=== PATIENT | male | born 1960 | race African-American/Black ===

== ENCOUNTER 2019-11-27 21:00 | Emergency (ER) | payer SELFPAY ==
[~2019-11-27] VITALS: Ht 180.3 cm; Wt 71.0 kg
[2019-11-27] MEDS ORDERED: HYDROCODONE/ACETAMINOPHEN 5/325MG TABLET PO ONE (22:30)
[2019-11-27] MEDS ORDERED: MORPHINE SULFATE 10 MG/ML CPJ IM ONE (23:00)
[2019-11-28 00:12] LABS: BASOPHILS % 0.1 % (0.0-2.0); EOSINOPHILS % 0.1 % (0.0-5.0); HEMATOCRIT. 35.5 % (42.0-52.0); HEMOGLOBIN. 12.1 g/dL (14.0-18.0); LYMPHOCYTES % 7.2 % (20.0-50.0); MEAN CORPUSCULAR HEMOGLOBIN 34.1 pg (28.0-32.0); MEAN CORPUSCULAR VOLUME 100.2 fL (80.0-94.0); MEAN PLATELET VOLUME 8.8 fl (7.4-10.4); MONOCYTES % 4.3 % (2.0-8.0); NEUTROPHILS % 88.3 % (40.0-76.0); PLATELET 183 x1000/uL (130-400); RED BLOOD CELL COUNT 3.54 mill/uL (4.7-6.1); RED CELL DISTRIBUTION WIDTH 14.2 % (11.6-14.6)
[2019-11-28 00:19] LABS: CHLORIDE 107 mEq/L (98-107)
[2019-11-28 00:21] LABS: PROTHROMBIN TIME 10.9 sec (9.6-11.0)
[2019-11-28] MEDS ORDERED: POTASSIUM CHLORIDE 20MEQ TABLET SR PO ONE ×2 (01:00→02:15)
[2019-11-28] MEDS ORDERED: ONDANSETRON 4MG ODT PO ONE (06:45)
[2019-11-28] MEDS ORDERED: MORPHINE SULFATE 4 MG/ML CPJ (NOT FOR IM USE) IV ONE ×2 (06:45→18:00)
[2019-11-28] MEDS ORDERED: MORPHINE SULFATE 4 MG/ML CPJ (NOT FOR IM USE) IV STA (08:42)
[2019-11-28 18:55] VITALS: BP 170/109
== END 2019-11-28 19:17 | disposition short-term general hospital (02) ==
LOC: ER 21:00
DX: S82.491A Other fracture of shaft of right fibula, initial encounter for closed fracture (principal); W18.39XA Other fall on same level, initial encounter; Y93.89 Activity, other specified; Y92.89 Other specified places as the place of occurrence of the external cause; Y99.8 Other external cause status
CPT/HCPCS: 29505; 36415; 73560; 80053; 85025; 85610; 86850; 86900; 86901; 93005; 96372; 96374; 96376; 99285; J2270; L1830; Q0162

== ENCOUNTER 2020-12-29 19:00 | Inpatient (IN) | payer MEDICARE, MEDICAID ==
[~2020-12-29] VITALS: Ht 175.3 cm; Wt 61.2 kg
[2020-12-29] MEDS ORDERED: LORAZEPAM 2MG/ML CPJ IV ONE (19:45)
[2020-12-29] MEDS ORDERED: LEVETIRACETAM 500MG PREMIX 100 ML IV ONE (19:45)
[2020-12-29 20:38] LABS: HEMATOCRIT. 43.2 % (42.0-52.0); HEMOGLOBIN. 14.5 g/dL (14.0-18.0); MEAN CORPUSCULAR HEMOGLOBIN 35.6 pg (28.0-32.0); MEAN CORPUSCULAR VOLUME 105.9 fL (80.0-94.0); MEAN PLATELET VOLUME 10.3 fl (7.4-10.4); PLATELET 72 x1000/uL (130-400); RED BLOOD CELL COUNT 4.08 mill/uL (4.7-6.1); RED CELL DISTRIBUTION WIDTH 15.7 % (11.6-14.6)
[2020-12-29 20:42] LABS: CHLORIDE 97 mEq/L (98-107)
[2020-12-29] MEDS ORDERED: LABETALOL 5MG/ML SYR 20 MG/4 ML SYRINGE IV ONE (21:15)
[2020-12-29 21:16] LABS: PLATELET ESTIMATE DECREASED
[2020-12-29] MEDS ORDERED: MANNITOL 12.5G (25%) VIAL 50ML IV ONE (21:45)
[2020-12-29] MEDS ORDERED: LABETALOL HCL 100 MG in DEXT 5% WATER 80 ML IV PRN (21:45)
[2020-12-29] MEDS ORDERED: NICARDIPINE 100 MG in SODIUM CHLORIDE 0.9% 60 ML IV PRN (21:45)
[2020-12-29] MEDS ORDERED: MANNITOL 20% 200 ML IV NR (22:00)
[2020-12-29] MEDS: DEXT 5%/LACTATED RINGERS 1,000 ML IV SCH (22:10)
[2020-12-29] MEDS ORDERED: DEXAMETHASONE 4MG/ML 1ML VIAL IV ONE (22:30)
[2020-12-29] MEDS: NICARDIPINE 100 MG in SODIUM CHLORIDE 0.9% 60 ML IV PRN (22:58)
[2020-12-29 23:30] VITALS: BP 160/75
[2020-12-30] VITALS (71 sets, daily range): BP systolic 38–156; BP diastolic 15–101
[2020-12-30] MEDS ORDERED: MANNITOL 20% (20GM/100ML) BAG 500ML PREMIX IV STA (00:16)
[2020-12-30] MEDS ORDERED: MANNITOL 20% 125 ML IV NR (00:30)
[2020-12-30] MEDS: MORPHINE SULFATE 2 MG/ML CPJ (NOT FOR IM USE) IV PRN ×2 (00:56→21:52)
[2020-12-30] MEDS: DEXAMETHASONE 4MG/ML 1ML VIAL IV SCH ×5 (01:08→23:18)
[2020-12-30 06:02] LABS: CHLORIDE 97 mEq/L (98-107)
[2020-12-30] MEDS: NICARDIPINE 100 MG in SODIUM CHLORIDE 0.9% 60 ML IV PRN (06:19)
[2020-12-30] MEDS ORDERED: LOSA50TA41 PO (06:31)
[2020-12-30] MEDS ORDERED: POTASSIUM CHLORIDE INJ 50 MEQ in DEXT 5% WATER 250 ML IV ONE (07:00)
[2020-12-30 08:45] LABS: HEMATOCRIT. 41.5 % (42.0-52.0); HEMOGLOBIN. 14.1 g/dL (14.0-18.0); MEAN CORPUSCULAR HEMOGLOBIN 34.9 pg (28.0-32.0); MEAN CORPUSCULAR VOLUME 102.9 fL (80.0-94.0); MEAN PLATELET VOLUME 9.3 fl (7.4-10.4); PLATELET 55 x1000/uL (130-400); RED BLOOD CELL COUNT 4.03 mill/uL (4.7-6.1); RED CELL DISTRIBUTION WIDTH 15.3 % (11.6-14.6)
[2020-12-30] MEDS ORDERED: LEVETIRACETAM 500MG PREMIX 100 ML IV SCH (09:00)
[2020-12-30 09:26] LABS: NUCLEATED RED BLOOD CELLS 1 /100 WBC
[2020-12-30 09:27] LABS: PLATELET ESTIMATE DECREASED
[2020-12-30] MEDS: PANTOPRAZOLE SODIUM 40 MG/VIAL IV SCH (10:23)
[2020-12-30] MEDS: LEVETIRACETAM 500MG PREMIX 100 ML IV SCH ×2 (10:23→21:51)
[2020-12-30] MEDS ORDERED: AMLO10TA80 PO (14:37)
[2020-12-30] MEDS ORDERED: MAGNESIUM 4 G PREMIX 100 ML IV SCH (16:00)
[2020-12-30] MEDS ORDERED: POTASSIUM CHLORIDE INJ 40 MEQ in DEXT 5% WATER 250 ML IV SCH (16:00)
[2020-12-30] MEDS: DEXT 5%/LACTATED RINGERS 1,000 ML IV SCH (18:42)
[2020-12-31] VITALS (85 sets, daily range): BP systolic 76–189; BP diastolic 23–167
[2020-12-31] MEDS: MORPHINE SULFATE 2 MG/ML CPJ (NOT FOR IM USE) IV PRN ×6 (00:50→23:00)
[2020-12-31 04:54] LABS: HEMATOCRIT. 34.5 % (42.0-52.0); HEMOGLOBIN. 12.1 g/dL (14.0-18.0); MEAN CORPUSCULAR HEMOGLOBIN 35.9 pg (28.0-32.0); MEAN CORPUSCULAR VOLUME 102.2 fL (80.0-94.0); RED BLOOD CELL COUNT 3.38 mill/uL (4.7-6.1); RED CELL DISTRIBUTION WIDTH 15.4 % (11.6-14.6)
[2020-12-31 05:01] LABS: CHLORIDE 105 mEq/L (98-107)
[2020-12-31] MEDS: DEXAMETHASONE 4MG/ML 1ML VIAL IV SCH ×4 (05:12→23:44)
[2020-12-31] MEDS: DEXT 5%/LACTATED RINGERS 1,000 ML IV SCH (08:15)
[2020-12-31] MEDS: PANTOPRAZOLE SODIUM 40 MG/VIAL IV SCH (08:16)
[2020-12-31] MEDS: LEVETIRACETAM 500MG PREMIX 100 ML IV SCH ×2 (08:16→20:39)
[2020-12-31] MEDS ORDERED: CEFTRIAXONE 1 G PREMIX 50 ML IV SCH (10:00)
[2020-12-31] MEDS ORDERED: NALOXONE HCL 0.4MG/ML VIAL IV PRN (10:15)
[2020-12-31] MEDS: CEFTRIAXONE 1,000 MG in DEXTROSE 5% WATER 50 ML IV SCH (12:29)
[2020-12-31] MEDS ORDERED: PIPERACILLIN/TAZOBACTAM 3.375 G in DEXTROSE 5% WATER 50 ML IV SCH (14:00)
[2020-12-31 17:05] LABS: CLARITY URINE CLEAR (CLEAR); COLOR URINE DARK YELLOW (YELLOW); KETONES URINE TRACE (NEGATIVE); LEUKOCYTE ESTERASE URINE TRACE (NEGATIVE); NITRITE URINE NEGATIVE (NEGATIVE); OCCULT BLOOD URINE TRACE (NEGATIVE); PROTEIN URINE 3+ (NEGATIVE); SPECIFIC GRAVITY URINE 1.026 (1.005-1.030)
[2020-12-31 19:05] LABS: *AMPHETAMINES SCREEN URINE NEGATIVE (NEGATIVE)
[2020-12-31 19:06] LABS: *BARBITURATES SCREEN URINE NEGATIVE (NEGATIVE); *BENZODIAZEPINES SCREEN URINE NEGATIVE (NEGATIVE); *COCAINE SCREEN URINE NEGATIVE (NEGATIVE); METHADONE URINE SCREEN NEGATIVE (NEGATIVE); OPIATES URINE SCREEN PRESUMTIVE POSITIVE (NEGATIVE); PHENCYCLIDINE URINE SCREEN NEGATIVE (NEGATIVE)
[2020-12-31 19:07] LABS: CANNABINOID URINE SCREEN NEGATIVE (NEGATIVE)
[2020-12-31] MEDS: NICOTINE 14MG PATCH TD SCH (20:39)
[2021-01-01] VITALS (92 sets, daily range): BP systolic 43–206; BP diastolic 21–146
[2021-01-01] MEDS: HYDRALAZINE 20MG/ML VIAL IV PRN ×4 (00:38→23:28)
[2021-01-01] MEDS: MORPHINE SULFATE 2 MG/ML CPJ (NOT FOR IM USE) IV PRN ×6 (02:11→23:29)
[2021-01-01] MEDS: DEXT 5%/LACTATED RINGERS 1,000 ML IV SCH ×3 (02:14→18:15)
[2021-01-01 05:26] LABS: HEMATOCRIT. 37.3 % (42.0-52.0); HEMOGLOBIN. 12.9 g/dL (14.0-18.0); MEAN CORPUSCULAR HEMOGLOBIN 35.4 pg (28.0-32.0); MEAN CORPUSCULAR VOLUME 102.3 fL (80.0-94.0); RED BLOOD CELL COUNT 3.64 mill/uL (4.7-6.1); RED CELL DISTRIBUTION WIDTH 15.5 % (11.6-14.6)
[2021-01-01 05:34] LABS: CHLORIDE 103 mEq/L (98-107)
[2021-01-01] MEDS: DEXAMETHASONE 4MG/ML 1ML VIAL IV SCH ×3 (05:44→18:15)
[2021-01-01] MEDS: PANTOPRAZOLE SODIUM 40 MG/VIAL IV SCH (08:10)
[2021-01-01] MEDS: LEVETIRACETAM 500MG PREMIX 100 ML IV SCH ×2 (08:10→21:57)
[2021-01-01] MEDS: NICOTINE 14MG PATCH TD SCH (08:10)
[2021-01-01] MEDS ORDERED: LORAZEPAM 2MG/ML CPJ IV NR (10:30)
[2021-01-01] MEDS ORDERED: POTASSIUM CHLORIDE 20MEQ/PACKET PO NR (10:30)
[2021-01-01] MEDS ORDERED: MORPHINE SULFATE 4 MG/ML CPJ (NOT FOR IM USE) IV NR (10:45)
[2021-01-01] MEDS: CEFTRIAXONE 1,000 MG in DEXTROSE 5% WATER 50 ML IV SCH (11:21)
[2021-01-01 11:35] LABS: BG BASE EXCESS 0.8 mmol/L (-2.0-2.0); BG CARBOXYHEMOGLOBIN 0.3 % (0.5-1.5); BG FRACTION INSPIRED OXYGEN 21; BG HCO3 ACT 22.7 mmol/L (22.0-26.0); BG METHEMOGLOBIN 0.4 % (0.0-1.5); BG OXYHEMOGLOBIN 96.3 % (94.0-97.0); BG PCO2 29.2 mmHg (35.0-45.0); BG PH 7.509 (7.350-7.450); BG PO2 90.7 mmHg (75.0-100.0); BG SAMPLE SITE RIGHT RADIAL; BG TOTAL HEMOGLOBIN 14.6 g/dL (12.0-18.0); BG VENT MODE ROOM AIR
[2021-01-01] MEDS: AMLODIPINE 5MG TABLET PO SCH (14:00)
[2021-01-01] MEDS ORDERED: IPRATROPIUM/ALBUTEROL 0.5-3(2.5)MG/3ML NEB HHN PRN (14:00)
[2021-01-01] MEDS: FOLIC ACID 1MG TABLET PO SCH (14:00)
[2021-01-01] MEDS ORDERED: ACETAMINOPHEN 650MG SUPP PR PRN (14:00)
[2021-01-01] MEDS: THIAMINE HCL 100MG TABLET PO SCH (14:00)
[2021-01-01] MEDS ORDERED: BISACODYL 10MG SUPP PR PRN (14:00)
[2021-01-01] MEDS: MULTIVITAMINS,THER W-MINERALS TABLET PO SCH (14:00)
[2021-01-01] MEDS ORDERED: ACETAMINOPHEN 325MG TABLET PO PRN (14:00)
[2021-01-01 15:04] LABS: T4 FREE 0.68 ng/dL (0.76-1.46)
[2021-01-01] MEDS: NICARDIPINE 100 MG in SODIUM CHLORIDE 0.9% 60 ML IV PRN (15:35)
[2021-01-02] VITALS (44 sets, daily range): BP systolic 98–161; BP diastolic 43–127
[2021-01-02] MEDS: HYDRALAZINE 20MG/ML VIAL IV PRN (05:22)
[2021-01-02 06:15] LABS: CHLORIDE 105 mEq/L (98-107)
[2021-01-02 06:16] LABS: HEMATOCRIT. 37.2 % (42.0-52.0); HEMOGLOBIN. 13.3 g/dL (14.0-18.0); MEAN CORPUSCULAR HEMOGLOBIN 36.2 pg (28.0-32.0); MEAN CORPUSCULAR VOLUME 101.8 fL (80.0-94.0); RED BLOOD CELL COUNT 3.66 mill/uL (4.7-6.1); RED CELL DISTRIBUTION WIDTH 15.1 % (11.6-14.6)
[2021-01-02] MEDS: PANTOPRAZOLE SODIUM 40 MG/VIAL IV SCH (08:28)
[2021-01-02] MEDS: THIAMINE HCL 100MG TABLET PO SCH (08:28)
[2021-01-02] MEDS: MULTIVITAMINS,THER W-MINERALS TABLET PO SCH (08:28)
[2021-01-02] MEDS: NICOTINE 14MG PATCH TD SCH (08:30)
[2021-01-02] MEDS: FOLIC ACID 1MG TABLET PO SCH (08:30)
[2021-01-02] MEDS: AMLODIPINE 5MG TABLET PO SCH (08:30)
[2021-01-02] MEDS: LEVETIRACETAM 500MG PREMIX 100 ML IV SCH ×2 (08:40→22:00)
[2021-01-02 08:44] LABS: PHOSPHORUS 0.7 mg/dL (2.5-4.9)
[2021-01-02] MEDS ORDERED: POTASSIUM CHLORIDE INJ 50 MEQ in DEXT 5% WATER 250 ML IV NR (10:00)
[2021-01-02] MEDS: CEFTRIAXONE 1,000 MG in DEXTROSE 5% WATER 50 ML IV SCH (11:20)
[2021-01-02] MEDS ORDERED: SODIUM PHOS,M-BASIC-D-BASIC 15 MM in DEXT 5% WATER 245 ML IV NR (14:00)
[2021-01-02] MEDS: LOSARTAN POTASSIUM 25 MG TABLET PO SCH (14:19)
[2021-01-02] MEDS: DEXT 5%/LACTATED RINGERS 1,000 ML IV SCH (15:02)
[2021-01-02] MEDS ORDERED: POTASSIUM CHLORIDE 20MEQ TABLET SR PO NR (22:00)
[2021-01-02] MEDS ORDERED: MAGNESIUM 2 G PREMIX 50 ML IV NR (23:30)
[2021-01-03] VITALS: BP 123/83
[2021-01-03] MEDS: HYDRALAZINE 20MG/ML VIAL IV PRN (01:48)
[2021-01-03] MEDS ORDERED: HYDRALAZINE 10 MG in SODIUM CHLORIDE 0.9% 49.5 ML IV PRN (03:30)
[2021-01-03 04:00] VITALS: BP 125/75
[2021-01-03 09:23] LABS: CHLORIDE 108 mEq/L (98-107)
[2021-01-03 09:28] LABS: PHOSPHORUS 3.3 mg/dL (2.5-4.9)
[2021-01-03] MEDS: NICOTINE 14MG PATCH TD SCH (09:48)
[2021-01-03] MEDS: PANTOPRAZOLE SODIUM 40 MG/VIAL IV SCH (09:48)
[2021-01-03] MEDS: MULTIVITAMINS,THER W-MINERALS TABLET PO SCH (09:49)
[2021-01-03] MEDS: LOSARTAN POTASSIUM 25 MG TABLET PO SCH (09:49)
[2021-01-03] MEDS: THIAMINE HCL 100MG TABLET PO SCH (09:49)
[2021-01-03] MEDS: FOLIC ACID 1MG TABLET PO SCH (09:50)
[2021-01-03] MEDS: AMLODIPINE 10MG TABLET PO SCH (09:50)
[2021-01-03] MEDS: LEVETIRACETAM 500MG PREMIX 100 ML IV SCH ×2 (09:50→20:34)
[2021-01-03 11:18] LABS: BASOPHILS % 0.3 % (0.0-2.0); EOSINOPHILS % 0.2 % (0.0-5.0); HEMATOCRIT. 37.4 % (42.0-52.0); LYMPHOCYTES % 11.9 % (20.0-50.0); MEAN PLATELET VOLUME 10.4 fl (7.4-10.4); MONOCYTES % 12.7 % (2.0-8.0); NEUTROPHILS % 74.9 % (40.0-76.0); PLATELET 95 x1000/uL (130-400); RED BLOOD CELL COUNT 3.61 mill/uL (4.7-6.1); RED CELL DISTRIBUTION WIDTH 14.8 % (11.6-14.6)
[2021-01-03 11:20] LABS: MEAN CORPUSCULAR VOLUME 103.8 fL (80.0-94.0)
[2021-01-03] MEDS: CEFTRIAXONE 1,000 MG in DEXTROSE 5% WATER 50 ML IV SCH (13:44)
[2021-01-03] MEDS: DEXT 5%/LACTATED RINGERS 1,000 ML IV SCH (18:25)
[2021-01-03 20:00] VITALS: BP 130/87
[2021-01-04] VITALS: BP 129/86
[2021-01-04 04:00] VITALS: BP 129/99
[2021-01-04 08:00] VITALS: BP 126/75
[2021-01-04] MEDS: FOLIC ACID 1MG TABLET PO SCH (09:29)
[2021-01-04] MEDS: PANTOPRAZOLE SODIUM 40 MG/VIAL IV SCH (09:29)
[2021-01-04] MEDS: LOSARTAN POTASSIUM 25 MG TABLET PO SCH (09:29)
[2021-01-04] MEDS: AMLODIPINE 10MG TABLET PO SCH (09:29)
[2021-01-04] MEDS: MULTIVITAMINS,THER W-MINERALS TABLET PO SCH (09:29)
[2021-01-04] MEDS: THIAMINE HCL 100MG TABLET PO SCH (09:29)
[2021-01-04] MEDS: LEVETIRACETAM 500MG PREMIX 100 ML IV SCH ×2 (09:30→21:33)
[2021-01-04] MEDS: NICOTINE 14MG PATCH TD SCH (09:32)
[2021-01-04] MEDS: DEXT 5%/LACTATED RINGERS 1,000 ML IV SCH (09:32)
[2021-01-04 12:00] VITALS: BP 115/75
[2021-01-04] MEDS: CEFTRIAXONE 1,000 MG in DEXTROSE 5% WATER 50 ML IV SCH (12:40)
[2021-01-04 12:52] LABS: BASOPHILS % 0.1 % (0.0-2.0); EOSINOPHILS % 0.5 % (0.0-5.0); HEMATOCRIT. 36.2 % (42.0-52.0); HEMOGLOBIN. 12.3 g/dL (14.0-18.0); LYMPHOCYTES % 12.9 % (20.0-50.0); MEAN CORPUSCULAR HEMOGLOBIN 35.7 pg (28.0-32.0); MEAN CORPUSCULAR VOLUME 105.2 fL (80.0-94.0); MEAN PLATELET VOLUME 9.5 fl (7.4-10.4); MONOCYTES % 14.6 % (2.0-8.0); NEUTROPHILS % 71.9 % (40.0-76.0); PLATELET 126 x1000/uL (130-400); RED BLOOD CELL COUNT 3.44 mill/uL (4.7-6.1); RED CELL DISTRIBUTION WIDTH 14.9 % (11.6-14.6)
[2021-01-04 13:04] LABS: CHLORIDE 108 mEq/L (98-107)
[2021-01-04] MEDS ORDERED: POTASSIUM CHLORIDE 20MEQ TABLET SR PO NR (13:30)
[2021-01-04 16:00] VITALS: BP 129/88
[2021-01-04 20:00] VITALS: BP 133/49
[2021-01-05] VITALS: BP 135/93
[2021-01-05] MEDS: DEXT 5%/LACTATED RINGERS 1,000 ML IV SCH ×2 (02:52→20:25)
[2021-01-05 04:00] VITALS: BP 128/91
[2021-01-05 07:38] LABS: HEMATOCRIT. 32.7 % (42.0-52.0); HEMOGLOBIN. 11.1 g/dL (14.0-18.0); MEAN CORPUSCULAR HEMOGLOBIN 36.1 pg (28.0-32.0); MEAN CORPUSCULAR VOLUME 105.9 fL (80.0-94.0); MEAN PLATELET VOLUME 9.6 fl (7.4-10.4); PLATELET 149 x1000/uL (130-400); RED BLOOD CELL COUNT 3.08 mill/uL (4.7-6.1); RED CELL DISTRIBUTION WIDTH 14.8 % (11.6-14.6)
[2021-01-05 07:49] LABS: CHLORIDE 108 mEq/L (98-107)
[2021-01-05 08:00] VITALS: BP 121/75
[2021-01-05] MEDS: THIAMINE HCL 100MG TABLET PO SCH (09:01)
[2021-01-05] MEDS: PANTOPRAZOLE SODIUM 40 MG/VIAL IV SCH (09:01)
[2021-01-05] MEDS: LOSARTAN POTASSIUM 25 MG TABLET PO SCH (09:02)
[2021-01-05] MEDS: FOLIC ACID 1MG TABLET PO SCH (09:02)
[2021-01-05] MEDS: LEVETIRACETAM 500MG TABLET PO SCH ×2 (09:02→21:52)
[2021-01-05] MEDS: AMLODIPINE 10MG TABLET PO SCH (09:03)
[2021-01-05] MEDS: NICOTINE 14MG PATCH TD SCH (09:21)
[2021-01-05] MEDS: MULTIVITAMINS,THER W-MINERALS TABLET PO SCH (09:21)
[2021-01-05] MEDS ORDERED: POTASSIUM CHLORIDE 20MEQ TABLET SR PO SCH (09:45)
[2021-01-05 12:00] VITALS: BP 105/65
[2021-01-05 13:45] LABS: PLATELET ESTIMATE NORMAL
[2021-01-05 16:00] VITALS: BP 124/89
[2021-01-05 20:00] VITALS: BP 124/75
[2021-01-06] VITALS: BP 134/90
[2021-01-06 04:00] VITALS: BP 128/70
[2021-01-06 08:00] VITALS: BP 139/85
[2021-01-06] MEDS: PANTOPRAZOLE SODIUM 40 MG/VIAL IV SCH (08:59)
[2021-01-06] MEDS: THIAMINE HCL 100MG TABLET PO SCH (09:00)
[2021-01-06] MEDS: FOLIC ACID 1MG TABLET PO SCH (09:00)
[2021-01-06] MEDS: LOSARTAN POTASSIUM 25 MG TABLET PO SCH (09:00)
[2021-01-06] MEDS: MULTIVITAMINS,THER W-MINERALS TABLET PO SCH (09:00)
[2021-01-06] MEDS: NICOTINE 14MG PATCH TD SCH (09:00)
[2021-01-06] MEDS: LEVETIRACETAM 500MG TABLET PO SCH ×2 (09:00→22:12)
[2021-01-06] MEDS: AMLODIPINE 10MG TABLET PO SCH (09:01)
[2021-01-06] MEDS: DEXT 5%/LACTATED RINGERS 1,000 ML IV SCH (13:05)
[2021-01-06 16:00] VITALS: BP 123/77
[2021-01-06 20:00] VITALS: BP 144/83
[2021-01-07] VITALS: BP 138/86
[2021-01-07 04:00] VITALS: BP 134/76
[2021-01-07] MEDS: DEXT 5%/LACTATED RINGERS 1,000 ML IV SCH (06:04)
[2021-01-07 08:00] VITALS: BP 158/96
[2021-01-07] MEDS: PANTOPRAZOLE SODIUM 40 MG/VIAL IV SCH (10:29)
[2021-01-07] MEDS: MULTIVITAMINS,THER W-MINERALS TABLET PO SCH (10:29)
[2021-01-07] MEDS: NICOTINE 14MG PATCH TD SCH (10:29)
[2021-01-07] MEDS: LOSARTAN POTASSIUM 25 MG TABLET PO SCH (10:29)
[2021-01-07] MEDS: LEVETIRACETAM 500MG TABLET PO SCH ×2 (10:30→22:16)
[2021-01-07] MEDS: AMLODIPINE 10MG TABLET PO SCH (10:30)
[2021-01-07] MEDS: FOLIC ACID 1MG TABLET PO SCH (10:30)
[2021-01-07] MEDS: THIAMINE HCL 100MG TABLET PO SCH (10:30)
[2021-01-07 12:15] VITALS: BP 123/72
[2021-01-07 16:00] VITALS: BP 133/80
[2021-01-07 16:45] LABS: HEMATOCRIT. 31.3 % (42.0-52.0); HEMOGLOBIN. 10.7 g/dL (14.0-18.0); MEAN CORPUSCULAR HEMOGLOBIN 35.9 pg (28.0-32.0); MEAN CORPUSCULAR VOLUME 104.6 fL (80.0-94.0); PLATELET 278 x1000/uL (130-400); RED BLOOD CELL COUNT 2.99 mill/uL (4.7-6.1); RED CELL DISTRIBUTION WIDTH 14.7 % (11.6-14.6)
[2021-01-07 17:06] LABS: CHLORIDE 106 mEq/L (98-107)
[2021-01-07 19:18] LABS: PLATELET ESTIMATE NORMAL
[2021-01-07 20:00] VITALS: BP 150/87
[2021-01-08] VITALS: BP 145/88
[2021-01-08 04:00] VITALS: BP 152/92
[2021-01-08 04:54] LABS: HEMATOCRIT 32.6 % (42.0-52.0); HEMOGLOBIN 11.2 g/dL (14.0-18.0); MEAN CORPUSCULAR HEMOGLOBIN 35.4 pg (28.0-32.0); MEAN CORPUSCULAR VOLUME 103.4 fL (80.0-94.0); PLATELET 294 x1000/uL (130-400); RED BLOOD CELL COUNT 3.15 mill/uL (4.7-6.1); RED CELL DISTRIBUTION WIDTH 14.8 % (11.6-14.6)
[2021-01-08 06:47] LABS: CHLORIDE 106 mEq/L (98-107)
[2021-01-08 08:00] VITALS: BP 149/78
[2021-01-08] MEDS: THIAMINE HCL 100MG TABLET PO SCH (11:20)
[2021-01-08] MEDS: LEVETIRACETAM 500MG TABLET PO SCH ×2 (11:20→20:45)
[2021-01-08] MEDS: AMLODIPINE 10MG TABLET PO SCH (11:20)
[2021-01-08] MEDS: LOSARTAN POTASSIUM 25 MG TABLET PO SCH (11:20)
[2021-01-08] MEDS: FOLIC ACID 1MG TABLET PO SCH (11:20)
[2021-01-08] MEDS: PANTOPRAZOLE SODIUM 40 MG/VIAL IV SCH (11:21)
[2021-01-08] MEDS: MULTIVITAMINS,THER W-MINERALS TABLET PO SCH (11:21)
[2021-01-08] MEDS: NICOTINE 14MG PATCH TD SCH (11:21)
[2021-01-08 12:00] VITALS: BP 144/89
[2021-01-08 16:00] VITALS: BP 121/82
[2021-01-08 20:00] VITALS: BP 143/78
[2021-01-09] VITALS: BP 135/78
[2021-01-09 04:00] VITALS: BP 147/62
[2021-01-09 08:00] VITALS: BP 148/103
[2021-01-09] MEDS: AMLODIPINE 10MG TABLET PO SCH (09:25)
[2021-01-09] MEDS: PANTOPRAZOLE SODIUM 40 MG/VIAL IV SCH (09:25)
[2021-01-09] MEDS: LEVETIRACETAM 500MG TABLET PO SCH (09:25)
[2021-01-09] MEDS: MULTIVITAMINS,THER W-MINERALS TABLET PO SCH (09:25)
[2021-01-09] MEDS: THIAMINE HCL 100MG TABLET PO SCH (09:25)
[2021-01-09] MEDS: FOLIC ACID 1MG TABLET PO SCH (09:25)
[2021-01-09] MEDS: LOSARTAN POTASSIUM 25 MG TABLET PO SCH (09:25)
[2021-01-09] MEDS: NICOTINE 14MG PATCH TD SCH (09:26)
[2021-01-09 12:00] VITALS: BP 142/86
[2021-01-09 16:00] VITALS: BP 128/76
[2021-01-09 20:00] VITALS: BP 139/83
[2021-01-10] VITALS: BP 127/77
[2021-01-10] MEDS: LEVETIRACETAM 500MG TABLET PO SCH ×3 (00:55→20:41)
[2021-01-10 04:00] VITALS: BP 118/71
[2021-01-10 08:00] VITALS: BP 168/93
[2021-01-10] MEDS: PANTOPRAZOLE SODIUM 40 MG/VIAL IV SCH (09:00)
[2021-01-10] MEDS: MULTIVITAMINS,THER W-MINERALS TABLET PO SCH (09:54)
[2021-01-10] MEDS: THIAMINE HCL 100MG TABLET PO SCH (09:54)
[2021-01-10] MEDS: FOLIC ACID 1MG TABLET PO SCH (09:54)
[2021-01-10] MEDS: AMLODIPINE 10MG TABLET PO SCH (09:55)
[2021-01-10] MEDS: LOSARTAN POTASSIUM 25 MG TABLET PO SCH (09:55)
[2021-01-10] MEDS: NICOTINE 14MG PATCH TD SCH (09:56)
[2021-01-10 12:00] VITALS: BP 141/81
[2021-01-10 16:00] VITALS: BP 135/75
[2021-01-10 20:00] VITALS: BP 129/89
[2021-01-11] VITALS: BP 109/84
[2021-01-11 04:00] VITALS: BP 128/71
[2021-01-11] MEDS: NICOTINE 14MG PATCH TD SCH (09:00)
[2021-01-11] MEDS: PANTOPRAZOLE SODIUM 40 MG/VIAL IV SCH (10:25)
[2021-01-11] MEDS: LOSARTAN POTASSIUM 25 MG TABLET PO SCH (10:26)
[2021-01-11] MEDS: FOLIC ACID 1MG TABLET PO SCH (10:26)
[2021-01-11] MEDS: LEVETIRACETAM 500MG TABLET PO SCH ×2 (10:26→20:20)
[2021-01-11] MEDS: MULTIVITAMINS,THER W-MINERALS TABLET PO SCH (10:27)
[2021-01-11] MEDS: THIAMINE HCL 100MG TABLET PO SCH (10:27)
[2021-01-11] MEDS: AMLODIPINE 10MG TABLET PO SCH (10:27)
[2021-01-11 12:00] VITALS: BP 121/73
[2021-01-11 16:00] VITALS: BP 130/69
[2021-01-11 20:00] VITALS: BP 157/94
[2021-01-12] VITALS: BP 137/90
[2021-01-12 04:00] VITALS: BP 148/98
[2021-01-12 08:00] VITALS: BP 159/90
[2021-01-12] MEDS: NICOTINE 14MG PATCH TD SCH (09:00)
[2021-01-12] MEDS: PANTOPRAZOLE SODIUM 40 MG/VIAL IV SCH (10:38)
[2021-01-12] MEDS: THIAMINE HCL 100MG TABLET PO SCH (10:38)
[2021-01-12] MEDS: LEVETIRACETAM 500MG TABLET PO SCH ×2 (10:38→23:29)
[2021-01-12] MEDS: AMLODIPINE 10MG TABLET PO SCH (10:39)
[2021-01-12] MEDS: FOLIC ACID 1MG TABLET PO SCH (10:40)
[2021-01-12] MEDS: LOSARTAN POTASSIUM 25 MG TABLET PO SCH (10:40)
[2021-01-12] MEDS: MULTIVITAMINS,THER W-MINERALS TABLET PO SCH (10:40)
[2021-01-12 12:00] VITALS: BP 122/78
[2021-01-12] MEDS ORDERED: AMLO10TA80 PO (14:20)
[2021-01-12] MEDS ORDERED: LOSA50TA41 PO (14:20)
[2021-01-12] MEDS ORDERED: FOLI-43 MT (14:20)
[2021-01-12] MEDS ORDERED: KEPP500 MT (14:20)
[2021-01-12] MEDS ORDERED: THIA100T88 MT (14:20)
[2021-01-12] MEDS ORDERED: MULT-1146 MT (14:20)
[2021-01-12 16:00] VITALS: BP 116/78
[2021-01-12 20:00] VITALS: BP 123/80
[2021-01-13 08:00] VITALS: BP 139/90
[2021-01-13] MEDS: THIAMINE HCL 100MG TABLET PO SCH (09:52)
[2021-01-13] MEDS: LOSARTAN POTASSIUM 25 MG TABLET PO SCH (09:52)
[2021-01-13] MEDS: LEVETIRACETAM 500MG TABLET PO SCH (09:52)
[2021-01-13] MEDS: AMLODIPINE 10MG TABLET PO SCH (09:53)
[2021-01-13] MEDS: FOLIC ACID 1MG TABLET PO SCH (09:53)
[2021-01-13] MEDS: PANTOPRAZOLE SODIUM 40 MG/VIAL IV SCH (09:57)
[2021-01-13] MEDS: MULTIVITAMINS,THER W-MINERALS TABLET PO SCH (09:57)
[2021-01-13] MEDS: NICOTINE 14MG PATCH TD SCH (10:02)
[2021-01-13 12:00] VITALS: BP 107/75
[2021-01-13 16:00] VITALS: BP 110/77
[2021-01-13 17:00] VITALS: BP 110/77
== END 2021-01-13 17:49 | disposition home health service (06) | DRG 871 ==
LOC: ER 19:00 → MICUSO 23:20 → EDBEDREQ 23:24 → ENRESERV 23:37 → 6EST 01-03 02:45
PROVIDERS: ADMIT Internal Medicine; ATTEND Internal Medicine
PROC: 30233R1 Transfusion of Nonautologous Platelets into Peripheral Vein, Percutaneous Approach (ICD-10-PCS; principal; 2020-12-30)
DX: A41.9 Sepsis, unspecified organism (principal); I61.5 Nontraumatic intracerebral hemorrhage, intraventricular; G93.41 Metabolic encephalopathy; E44.0 Moderate protein-calorie malnutrition; G81.94 Hemiplegia, unspecified affecting left nondominant side; N39.0 Urinary tract infection, site not specified; Z68.1 Body mass index [BMI] 19.9 or less, adult; D69.6 Thrombocytopenia, unspecified; E87.6 Hypokalemia; F10.10 Alcohol abuse, uncomplicated; F17.210 Nicotine dependence, cigarettes, uncomplicated; G40.909 Epilepsy, unspecified, not intractable, without status epilepticus; I10 Essential (primary) hypertension; D64.9 Anemia, unspecified; Z20.822 Contact with and (suspected) exposure to COVID-19; E83.39 Other disorders of phosphorus metabolism; E83.42 Hypomagnesemia; R74.01 Elevation of levels of liver transaminase levels; Y90.9 Presence of alcohol in blood, level not specified; R73.9 Hyperglycemia, unspecified; Z86.73 Personal history of transient ischemic attack (TIA), and cerebral infarction without residual deficits; Z91.14 Patient's other noncompliance with medication regimen; Z71.6 Tobacco abuse counseling; Z71.41 Alcohol abuse counseling and surveillance of alcoholic; Z78.1 Physical restraint status
CPT/HCPCS: 36415; 36600; 71045; 80048; 80053; 80061; 80305; 81003; 82375; 82533; 82805; 83036; 83735; 84100; 84132; 84133; 84145; 84439; 84443; 84484; 85025; 85027; 85049; 86850; 86900; 87426; 92610; 93005; 93306; 93880; 93970; 97110; 97116; 97162; 97166; 97530; 97535; 99291; C9113; J0360; J0696; J1100; J1953; J2060; J2270; J2543; J3475; J3480; J3490; J7040; J7050; J7060; P9034